=== PATIENT | male | born 1950 | race Caucasian/White ===

== ENCOUNTER → 2018-12-29 | Outpatient (CLI) | payer OTHER ==
[2018-12-29 10:18] LABS: Basophils % (A) 1 %; Eosinophils # (A) 0.2 k/uL (0-0.7); Eosinophils % (A) 3 %; HCT 45.7 % (39.0-53.0); HGB 14.9 gm/dL (13.0-17.5); Lymphocytes % (A) 27 %; MCHC 32.7 g/dL (31.0-37.0); MCV 91.9 fL (80.0-100.0); Mean Platelet Volume 7.7; Monocytes # (A) 0.4 k/uL (0-1.0); Monocytes % (A) 6 %; Neutrophils # (A) 4.8 k/uL (1.3-7.7); Neutrophils % (A) 62 %; Platelet Count 178 k/uL (150-450); RBC 4.97 m/uL (4.30-5.90); RDW 14.8 % (11.5-15.5); WBC 7.6 k/uL (3.8-10.6)
[2018-12-29 16:42] LABS: African American GFR (CKD) 107.9 (60.0-200.0); Albumin 4.3 g/dL (3.80-4.90); Albumin/Globulin Ratio 2.26 (1.60-3.17); Anion Gap 6.8 mmol/L (4.00-12.00); BUN/Creat Ratio 13.75 Ratio (12.00-20.00); Calcium 9.4 mg/dL (8.7-10.3); Carbon Dioxide 26.2 mmol/L (21.6-31.8); Globulin 1.9 g/dL (1.6-3.3); Potassium 4.6 mmol/L (3.5-5.5); Total Bilirubin 0.5 mg/dL (0.3-1.2); Total Protein 6.2 g/dL (6.2-8.2)
[2018-12-29 16:54] LABS: T4, Free (Free Thyroxine) 1.3 ng/dL (0.80-1.80)
[2018-12-29 18:28] LABS: Hemoglobin A1C 7.4 % (4.0-6.0)
== END | disposition home or self-care (01) ==
LOC: LABWHC1 09:51
PROVIDERS: ATTEND Family Medicine
DX: E03.9 Hypothyroidism, unspecified (principal); I10 Essential (primary) hypertension; E11.9 Type 2 diabetes mellitus without complications
CPT/HCPCS: 36415; 80053; 82043; 82306; 82570; 83036; 84439; 84443; 84481; 85025

== ENCOUNTER → 2019-01-19 | Outpatient (CLI) | payer OTHER ==
[2019-01-19 16:15] LABS: Chol/HDL Ratio 3.58
== END | disposition home or self-care (01) ==
LOC: LABWHC1 08:22
PROVIDERS: ATTEND Family Medicine
DX: Z00.00 Encounter for general adult medical examination without abnormal findings (principal)
CPT/HCPCS: 36415; 80061; 84153

== ENCOUNTER → 2019-05-10 | Outpatient (CLI) | payer SELFPAY ==
[2019-05-10 08:17] LABS: Basophils # (A) 0.1 k/uL (0-0.2); Basophils % (A) 1 %; Eosinophils # (A) 0.2 k/uL (0-0.7); Eosinophils % (A) 2 %; HCT 43.7 % (39.0-53.0); HGB 14.6 gm/dL (13.0-17.5); Lymphocytes # (A) 2.3 k/uL (1.0-4.8); Lymphocytes % (A) 23 %; MCH 30.4 pg (25.0-35.0); MCHC 33.3 g/dL (31.0-37.0); MCV 91.2 fL (80.0-100.0); Mean Platelet Volume 8.2; Monocytes # (A) 0.7 k/uL (0-1.0); Monocytes % (A) 7 %; Neutrophils # (A) 6.6 k/uL (1.3-7.7); Neutrophils % (A) 66 %; Platelet Count 203 k/uL (150-450); RBC 4.79 m/uL (4.30-5.90); RDW 13.2 % (11.5-15.5); WBC 10.1 k/uL (3.8-10.6)
[2019-05-10 11:32] LABS: African American GFR (CKD) 90.5 (60.0-200.0); Albumin 4.4 g/dL (3.80-4.90); Albumin/Globulin Ratio 2.59 (1.60-3.17); Anion Gap 8.9 mmol/L (4.00-12.00); Calcium 9.5 mg/dL (8.7-10.3); Carbon Dioxide 23.1 mmol/L (21.6-31.8); Globulin 1.7 g/dL (1.6-3.3); Non-African American GFR(CKD) 78.1 (60.0-200.0); Potassium 4.1 mmol/L (3.5-5.5); Total Bilirubin 0.3 mg/dL (0.2-1.2); Total Protein 6.1 g/dL (6.2-8.2)
[2019-05-10 12:48] LABS: T4, Free (Free Thyroxine) 1.6 ng/dL (0.80-1.80)
== END | disposition home or self-care (01) ==
LOC: LABWHC1 06:44
PROVIDERS: ATTEND Family Medicine
DX: E03.9 Hypothyroidism, unspecified (principal); I10 Essential (primary) hypertension; E11.9 Type 2 diabetes mellitus without complications
CPT/HCPCS: 36415; 80053; 82043; 82570; 84439; 84443; 84481; 85025

== ENCOUNTER 2020-05-22 11:53 | Day surgery (SDC) | payer OTHER ==
[2020-05-21 10:29] VITALS: BMI 24.9
[~2020-05-22 11:53] MED LIST: LACTATED RINGERS 1,000 ML IV SCH
[2020-05-22 12:45] VITALS: TEMP 97.8
[2020-05-22] MEDS ORDERED: LIDOCAINE 1% (10MG/ML) FOR IV START INTRADERMA ONE (12:57)
[2020-05-22 13:00] LABS: Glucose,Whole Blood 178 mg/dL (75-99)
[2020-05-22] MEDS ORDERED: PROPOFOL 10 MG/ML 20 ML VIAL IV ONE (13:29)
--- NOTE | 2020-05-22 13:53 | P.PCN ---
Date of Procedure: 05/22/20 Procedure(s) Performed: BRIEF HISTORY: Patient is a 69-year-old pleasant male scheduled for an elective colonoscopy as a part of change in bowel habits and abdominal bloating for the last several months duration. PROCEDURE PERFORMED: Colonoscopy with snare polyp. PREOPERATIVE DIAGNOSIS: Change in bowel habits and abdominal bloating. IV sedation per Anesthesia. PROCEDURE: After informed consent was obtained, the patient, was brought into the endoscopy unit. IV sedation was administered by Anesthesia under continuous monitoring. Digital rectal examination was normal. Initially the Olympus CF-160 flexible video colonoscope was then inserted in the rectum, gradually advanced into the cecum without any difficulty. Careful examination was performed as the scope was gradually being withdrawn. Ileocecal valve and the appendiceal orifice were visualized and appeared normal. Prep was good. In the base of the cecum there was a 5 mm polyp removed by snare polypectomy. Mucosa of the cecum, ascending colon, transverse colon appeared normal. The descending colon there was a 5 mm and 1.5 cm polyps removed by snare polypectomy. In the sigmoid: There was a 3 mm and 1.5 cm broad-based polyp removed by snare polypectomy. Rest of the descending colon, sigmoid colon, and rectum appeared normal. Retroflexion was performed in the rectum and no lesions were seen. The patient tolerated the procedure well. IMPRESSION: 5 mm cecal polyp status post polypectomy 5 mm and 1.5 cm descending colon polyp status post polypectomy 3 mm and 1.5 cm; sigmoid polyp status post polypectomy RECOMMENDATIONS: Findings of this examination were discussed with the patient well as his family. He was advised to follow with the biopsy results. If the biopsy shows an adenoma he can have a repeat colonoscopy in 3 years..
[2020-05-22 14:18] VITALS: BP 127/79; PULSE 63; RESP 17
== END 2020-05-22 14:58 | disposition home or self-care (01) ==
LOC: ORWHC2ENDO 11:53
PROVIDERS: ATTEND Internal Medicine Gastroenterology
DX: D12.0 Benign neoplasm of cecum (principal); K63.5 Polyp of colon; D12.4 Benign neoplasm of descending colon; I10 Essential (primary) hypertension; E78.5 Hyperlipidemia, unspecified; E11.9 Type 2 diabetes mellitus without complications; E07.9 Disorder of thyroid, unspecified; K21.9 Gastro-esophageal reflux disease without esophagitis; N40.0 Benign prostatic hyperplasia without lower urinary tract symptoms; Z79.899 Other long term (current) drug therapy; Z79.890 Hormone replacement therapy; Z79.84 Long term (current) use of oral hypoglycemic drugs
CPT/HCPCS: 45385; 88305; J2704

== ENCOUNTER 2024-09-20 09:18 | Day surgery (SDC) | payer MEDICARE ==
[2024-09-18 11:59] VITALS: BMI 28.7
[2024-09-20 09:47] VITALS: RESP 16; TEMP 96.7
[2024-09-20 09:47] LABS: Glucose,Whole Blood 124 mg/dL (70-110)
[2024-09-20] MEDS: IV FLUID CONTINUATION 1,000 ML IV ONE (09:47)
[2024-09-20] MEDS: LACTATED RINGERS 1,000 ML IV SCH (09:48)
[2024-09-20] MEDS ORDERED: PROPOFOL 10 MG/ML 20 ML VIAL IV ONE (09:54)
--- NOTE | 2024-09-20 10:19 | P.PCN ---
Date of Procedure: 09/20/24 Procedure(s) Performed: BRIEF HISTORY: Patient is a 73-year-old pleasant white male scheduled for an elective colonoscopy as a part of screening for by history of colon polyps but his last colonoscopy was 4 years ago and was noted to have multiple adenomas. PROCEDURE PERFORMED: Colonoscopy with snare polypectomy. PREOPERATIVE DIAGNOSIS: Screening for history of colon polyps. IV sedation per Anesthesia. PROCEDURE: After informed consent was obtained, the patient, was brought into the endoscopy unit. IV sedation was administered by Anesthesia under continuous monitoring. Digital rectal examination was normal. Initially the Olympus CF-160 flexible video colonoscope was then inserted in the rectum, gradually advanced into the cecum without any difficulty. Careful examination was performed as the scope was gradually being withdrawn. Ileocecal valve and the appendiceal orifice were visualized and appeared normal. Prep was excellent. Mucosa of the cecum, appeared normal. In the ascending colon there were 3 polyps measuring between 5 mm and 7 mm in size removed by snare polypectomy. In the transverse colon there is a 3 mm polyp that was removed by cold biopsy. In the descending colon there was a 5 mm polyp removed by snare polypectomy. In the sigmoid colon there was there were 4 polyps measuring between 3 to 4 mm in size removed by snare polypectomy. Rest of the rectum appeared normal. Retroflexion was performed in the rectum and no lesions were seen. The patient tolerated the procedure well. IMPRESSION: 3 mm x 2 transverse colon polyp status post cold biopsy 5 mm x 2 and 7 mm ascending colon polyp status post polypectomy 5 mm descending colon polyp status post polypectomy 4 polyps in the sigmoid colon measuring between 3 to 4 mm in size status post polypectomy RECOMMENDATIONS: Findings of this examination were discussed with the patient well as his family. He was advised to follow-up with the biopsy results. If the biopsy reveals adenoma he can have repeat colonoscopy in 3 years..
[2024-09-20 10:40] VITALS: BP 133/78; PULSE 67
== END 2024-09-20 11:00 | disposition home or self-care (01) ==
LOC: ORWHC2ENDO 09:18
PROVIDERS: ATTEND Internal Medicine Gastroenterology
DX: Z12.11 Encounter for screening for malignant neoplasm of colon (principal); D12.3 Benign neoplasm of transverse colon; D12.2 Benign neoplasm of ascending colon; D12.4 Benign neoplasm of descending colon; D12.5 Benign neoplasm of sigmoid colon; Z86.0101 Personal history of adenomatous and serrated colon polyps
CPT/HCPCS: 45380; 45385; J2704; 88305